=== PATIENT | female | born 1955 | race Caucasian/White ===

== ENCOUNTER 2019-07-11 09:45 | Emergency (ER) | payer BC ==
--- OUTSIDE RECORDS SUMMARY | 2019-07-11 09:51 | XMS REPORT | Continuity of Care Document ---
:1955 Author Organization [facility] Care Team Providers Name Role Phone BALTAZAR RANDALL Admitting Physician BALTAZAR RANDALL Attending Physician Allergies and Intolerances Code Code System Allergy Type Reaction Severity Start End Date Status Substance Date RXNorm Sulfa Drug hives Moderate Active (Sulfonamide allergy 5 Antibiotics) (disorder) 505844 RXNorm Demerol Drug vomiting Unknown Active allergy 5 (disorder) Medications RxNorm Medication Dose Route Instructions Start Date End Date Status 065042 Metformin 500 mg oral orally every day Active hydrochloride 500 MG Oral Tablet Medications At Time Of Discharge RxNorm Medication Dose Route Instructions Start Date End Date Status 635054 Metformin 500 mg oral orally every day Active hydrochloride 500 MG Oral Tablet Problems Code Code System Problem Name Start Date End Date Status 84061179 SNOMED-CT Diabetes mellitus U Active Procedures No data in the system Results Laboratory Results Order: A1C Specimen Source: Body Site: Legend: (G,H) = High, (GG,HH,CH,#H) = Above High Threshold, (#,L) = Low, (##,CL, #L,LL) = Below Low Threshold, (C,CC,CA,#A,A) = Abnormal LOINC Test Result Flag Range Units Date 1A1C 8.9 H 4.8-6.0 % 06/18/2019 13:17 Performing Lab Footnotes:[facility] - [id number] - [address] [place] [id number] LIBERTY JEFFERSON Order: BASIC METABOLIC PANEL Specimen Source: Body Site: Legend: (G,H) = High, (GG,HH,CH,#H) = Above High Threshold, (#,L) = Low, (##,CL,#L,LL) = Below Low Threshold, (C,CC,CA,#A,A) = Abnormal LOINC Test Result Flag Range Units Date 1SODIUM 138 136-145 mmol/L 06/18/2019 13:17 1POTASSIUM 4.3 3.5-5.2 mmol/L 06/18/2019 13:17 1CHLORIDE 99 L 100-108 mmol/L 06/18/2019 13:17 1CO2 27 21-32 mmol/L 06/18/2019 13:17 1GLUCOSE 172 H 70-100 mg/dL 06/18/2019 13:17 1BUN 11 7-21 mg/dL 06/18/2019 13:17 1CREATININE 0.8 0.6-1.3 mg/dL 06/18/2019 13:17 Interpretive Caity: 1Normal Kidney Function or Mild Disease - GFR >OR= 60 Chronic Kidney Disease - GFR 15-59 Renal Failure - GFR < 15 GFR not calculated on patients under 18 years of age. Calculated (estimated) GFR is based on the MDRD Study equation, which assumes a steady state for creatinine. Estimated GFR may not be appropriate for medication dosing. 1CALCIUM 9.5 8.5-10.8 mg/dL 06/18/2019 13:17 1GFR >60 06/18/2019 13:17 Performing Lab Footnotes:[facility] - [id number] - [address] [place] [address] LIBERTY BASSETTCIOMD1 Social History Code Code System Social History Description Dates Observed Observation 830247658 SNOMED CT Current Smoking Unknown if ever Status smoked UNK AdministrativeGender Sex Assigned At Unknown Vital Signs No data in the system Goals Section No data in the system Health Concerns No data in the systemEncounter Diagnosis Date Code Code System Diagnosis Status E11.9 ICD10 TYPE 2 DM WITHOUT COMPLICATIONS Active Advance Directives No Data in the System Encounters Encounter Diagnosis Location Date TYPE 2 DM WITHOUT COMPLICATIONS [facility] 06/18/2019 Family History Family history not obtained Functional Status No data in the system Immunizations No data in the system Medical Equipment No data in the system Mental Status No data in the system Assessment and Plan Assessments No data in the systemPlan Of Treatment No data in the systemPending Tests No data in the system Hospital Discharge Instructions No data in the system Reason for Visit No data in the system
--- OUTSIDE RECORDS SUMMARY | 2019-07-11 09:51 | XMS REPORT | Continuity of Care Document ---
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 [phone] Problems Active Problems Provider Date Type 2 diabetes mellitus Porsha Graham MD Onset: 05/09/2014 Essential hypertension Porsha Graham MD Onset: 06/19/2019 Social History Type Date Description Comments Sex Unknown Cigarette Use Denies Cigarette Use ETOH Use Denies alcohol use Tobacco Use Start: Unknown Patient has never smoked Allergies, Adverse Reactions, Alerts Active Allergies Reaction Severity Comments Date sulfa hives 12/11/2013 Demerol hives 12/11/2013 Medications Active Medications SIG Qnty Indications Ordering Date Provider Vitamin D3 1 by mouth every 90caps Porsha Graham, 06/19/2019 25mcg (1000 day Ut) Capsules Januvia 1 by mouth every 90tabs E11.9 Porsha Graham, 06/19/2019 50mg Tablets day Metformin HCL 1.5 tabs po qday 60tabs E11.9 Porsha Graham, 12/20/2018 1000mg MD Tablets Atorvastatin Calcium 1 by mouth every 90tabs Porsha Graham, 12/19/2018 day 10mg Tablets Accu-Chek Multiclix use as directed 102units Porsha Graham, 01/19/2016 Lancets one to two times Misc every day Accu-Chek Nettie Plus check blood 100units Porsha Graham, 12/15/2014 sugars once per MD Strips day prn Blood Glucose Use as directed 1units Tj Najera DO 08/07/2014 Monitoring System W/Device Kit Medications Administered in Office Medication SIG Qnty Indications Ordering Provider Date Injection Methylprednisolone Debbie Redding, 12/11/2013 Acetate 40 MG M.D. Injection Immunizations CPT Code Status Date Vaccine Lot # [id number] Given 06/19/2019 Pneumococcal Conjugate Vaccine 13 Valent Im [id number] (Prevnar 13) 87171 Given 05/30/2019 Influenza Virus Vaccine, Quad, Preservative Free 6mo & up [address] Given 05/04/2018 Influenza Virus Vaccine, Quad, Preservative Free [id number] 6mo & up 94168 Given 03/01/2017 Influenza Virus Vaccine, Quad, Preservative Free [id number] 6mo & up [address] Given 03/28/2016 Influenza Virus Vaccine, Quad, Preservative Free [id number] 6mo & up Vital Signs Date Vital Result Comment 06/19/2019 1:53pm Weight 150.00 lb Weight 68.040 kg BMI (Body Mass Index) 27.4 kg/m2 BP Systolic 128 mmHg BP Diastolic 78 mmHg Heart Rate 88 /min Body Temperature 98.6 F Respiratory Rate 20 /min Height 62 inches 5'2" Height in cm's 157.5 cm O2 % BldC Oximetry 98 % 12/19/2018 2:34pm Weight 149.50 lb Weight 67.813 kg BMI (Body Mass Index) 27.3 kg/m2 Height 62 inches 5'2" Height in cm's 157.5 cm Results Test Acquired Date Facility Test Result H/L Range Note Basic Metabolic 06/18/2019 [facility] Sodium 138 mmol/L 136- 145 Panel [phone] Potassium 4.3 mmol/L 3.5-5.2 Chloride 99 mmol/L Low 100-108 Co2 27 mmol/L 21-32 Glucose 172 mg/dL High 70-100 BUN 11 mg/dL 7-21 Creatinine 0.8 mg/dL 0.6-1.3 1 Calcium 9.5 mg/dL 8.5-10.8 GFR >60 Laboratory test 06/18/2019 [facility] A1c 8.9 % High 4.8-6.0 finding [phone] Basic Metabolic Panel 12/19/2018 [facility] Sodium 136 mmol/L 136-145 [phone] Potassium 4.3 mmol/L 3.5-5.2 Chloride 101 mmol/L 100-108 Co2 28 mmol/L 21-32 Glucose 192 mg/dL High 70-100 BUN 15 mg/dL 7-21 Creatinine 0.8 mg/dL 0.6-1.3 2 Calcium 9.5 mg/dL 8.5-10.8 GFR >60 Laboratory test finding 12/19/2018 [facility] A1c 8.2 % High 4.8 -6.0 [phone] 1 Normal Kidney Function or Mild Disease - GFR >OR= 60 Chronic Kidney Disease - GFR 15-59 Renal Failure - GFR < 15 GFR not calculated on patients under 18 years of age. 2 Normal Kidney Function or Mild Disease - GFR >OR= 60 Chronic Kidney Disease - GFR 15-59 Renal Failure - GFR < 15 GFR not calculated on patients under 18 years of age. Procedures Date Code Description Status 08/20/2018 [id number] Mammogram Completed 02/19/2018 88373353 Colonoscopy Completed 04/21/2011 794055405 Bone Mineral Density Test Completed Medical Devices Description No Information Available Encounters Type Date Location Provider Dx Diagnosis Office Visit 06/19/2019 [facility] Porsha Graham, E11.9 Type 2 diabetes 1:45p Care mellitus without complications I10 Essential (primary) hypertension Z23 Encounter for immunization Office Visit 12/19/2018 2:30p [facility] Porsha E11.9 Type 2 diabetes Care MD Santos mellitus without complications Assessments Date Code Description Provider 06/19/2019 E11.9 Type 2 diabetes mellitus without complications Porsha Graham MD 06/19/2019 I10 Essential (primary) hypertension Porsha Graham MD 06/19/2019 Z23 Encounter for immunization Porsha Graham MD 06/18/2019 E11.9 Type 2 diabetes mellitus without complications Apc and Endo Draw 12/19/2018 E11.9 Type 2 diabetes mellitus without complications Apc and Endo Draw 12/19/2018 E11.9 Type 2 diabetes mellitus without complications Porsha Graham MD Plan of Treatment 06/19/2019 - Porsha Graham MDE11.9 Type 2 diabetes mellitus without [id number] Essential (primary) urcyivctqfpmK20 Encounter for immunizationNew Medication:Januvia 50 mgNew Labs:Comprehensive Panel, Ordered: 06/19/19Lipid Panel, Ordered: 06/19/19A1c, Ordered: 06/19/19Follow up:RTO [address] Miguel. Functional Status Description No Information Available Mental Status Description No Information Available Referrals Description No Information Available
--- NOTE | 2019-07-11 11:39 | UC ---
Head Injury HPI - HPI Summary HPI Summary: 64-year-old woman comes in with a chief complaint of a head injury after a fall yesterday. Patient slipped on some ice and fell backwards striking the back of her head. She reports having lost consciousness for several seconds. Headache and that time was about a 10 out of 10. Headache is less now. Patient's headache is primarily in the front in the right temporal area today. Denies any photophobia or change in vision or speech. Does feel some generalized weakness but, no complaint of any focal weakness or numbness. Patient takes a baby aspirin not on any other blood thinners. Also has neck pain and mid thoracic back pain since the fall. - History Of Current Complaint Chief Complaint: UCHeadInjury Stated Complaint: FELL ON ICE , HIT HEAD Time Seen by Provider: 07/11/19 11:23 Pain Intensity: 7 - Allergies/Home Medications Allergies/Adverse Reactions: Allergies Allergy/AdvReac Type Severity Reaction Status Date / Time meperidine [From Demerol] Allergy Vomiting Verified 07/11/19 10:03 morphine Allergy Vomiting Verified 07/11/19 10:03 Sulfa (Sulfonamide Allergy Hives Verified 07/11/19 10:03 Antibiotics) Home Medications: Home Medications Metformin ER 1,500 mg PO DAILY 07/15/12 [History Confirmed 07/15/12] Atorvastatin* [Lipitor 10 MG*] 1 tab PO DAILY 07/11/19 [History Confirmed ] PMH/Surg Hx/FS Hx/Imm Hx Previously Healthy: Yes Endocrine History: Diabetes, Dyslipidemia - Surgical History Surgical History: Yes Surgery Procedure, Year, and Place: carpal tunnel - Family History Known Family History: Positive: Non-Contributory - Social History Alcohol Use: None Substance Use Type: None Smoking Status (MU): Former Smoker Review of Systems All Other Systems Reviewed And Are Negative: Yes Constitutional: Positive: Other - SEE HPI Skin: Positive: Negative Eyes: Positive: Negative ENT: Positive: Negative Respiratory: Positive: Negative Cardiovascular: Positive: Other - SEE HPI Gastrointestinal: Positive: Negative Motor: Positive: Other - SEE HPI Neurovascular: Positive: Negative Musculoskeletal: Positive: Other: - SEE HPI Neurological/Mental Status: Positive: Headache, Other - SEE HPI Psychological: Positive: Negative Is Patient Immunocompromised?: No Physical Exam Triage Information Reviewed: Yes Appearance: Well-Appearing, Well-Nourished, Pain Distress - MILD Vital Signs: Initial Vital Signs Temp 98 F 07/11/19 09:59 Pulse 86 07/11/19 09:59 Resp 15 07/11/19 09:59 BP 136/69 07/11/19 09:59 Pulse Ox 100 07/11/19 09:59 Vital Signs Reviewed: Yes Eye Exam: Normal Eyes: Positive: Conjunctiva Clear, Other: - PERRLA EOMI. No photophobia ENT: Positive: Pharynx normal, TMs normal - No hemotympanum. Negative: Nasal drainage Neck: Positive: Other: - Tender to palpation in the posterior midline and lateral aspects of the neck. Respiratory: Positive: Lungs clear, Normal breath sounds, No respiratory distress, Other: - Tender to palpation midline mid thoracic back. Cardiovascular: Positive: RRR Musculoskeletal: Positive: Strength Intact, ROM Intact, Other: - Tender to palpation mid thoracic back. Neurological: Positive: Alert, Muscle Tone Normal, Other: - No focal neurologic deficit on examination. Psychological: Positive: Age Appropriate Behavior Skin Exam: Normal Head Injury Course/Dx - Course Course Of Treatment: Swine Extension Field Specialist: Brett Wiseman ([id number]) Temporary Help Agency Referral Clerk: HAKEEM (NUANCE) Report Date: 07/11/2019 12:13:00 Report Status: Final Start of Report Content Patient Name: CHARLIE ASHRAF Medical Record#: [id number] Ordering Physician: Gabriel Davis MD Acct.#: [id number] : Age: 64 Sex: F Location: [facility] Exam Date: 07/11/19 1132 ADM Status: REG ER Order Information: CT SPINE CERVICAL W/O Accession Number: [id number] CPT: 31137 INDICATION: Trauma. COMPARISON: There are no prior studies available for comparison. TECHNIQUE: Contiguous axial sections were obtained from the skull base through the T2 vertebra. Images were reconstructed in the sagittal and coronal planes. FINDINGS: There is straightening of the cervical lordotic curvature with 3 mm anterolisthesis of C4 on C5. There is no abnormal splaying of the spinous processes. The cranial vertebral junction and facets are anatomically aligned. The bones are osteopenic. The vertebral body heights are maintained. No fractures identified. There is acquired osseous fusion of the left C2-C3 facets. There is moderate intervertebral disc height loss at C5-C6 and C6-C7. The paraspinal and prevertebral soft tissues are grossly unremarkable. Varying degrees multiple spondylosis does not result in severe osseous encroachment spinal canal. There is moderate left neural foraminal stenosis at C3-C4. IMPRESSION: 1. No fracture. 2. Varying degrees of multiple spondylosis does not cause severe osseous encroachment spinal canal. There is moderate left neural foraminal stenosis at C3-C4. 3. 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 4. Osteopenia. < Electronically signed by Brett Wiseman MD in OV> 07/11/19 1210 Dictated By: Brett Wiseman MD Dictated Date/Time: 07/11/19 1203 Transcribed Date/Time: 1203 Copy to: CC:Porsha Graham MD; Gabriel Davis MD Imaging - [facility] - [facility] [address] [address] ph [phone]) ph [phone]) ph ([phone]) ===== End of Report Content Swine Extension Field Specialist: Ant Aguirre Daniel, ([id number]) Temporary Help Agency Referral Clerk: HAKEEM ( ALONSOANCE) Report Date: 07/11/2019 12:10:00 Report Status: Final ====== Start of Report Content Patient Name: CHARLIE ASHRAF Medical Record# : [id number] Ordering Physician: Gabriel Davis MD Acct.#: [id number] : 1955 Age: 64 Sex: F Location: [facility] Exam Date: 1132 ADM Status: REG ER Order Information: CT BRAIN WO Accession Number: [id number] CPT: 95115 HISTORY: PAIN S/P FALL 07/10/19,REPORTS LOC COMPARISONS: None relevant available at the time of dictation. TECHNIQUE: Multiple contiguous axial CT scans were obtained of the head without intravenous contrast. Coronal and sagittal multiplanar reformations are also submitted for review. FINDINGS: HEMORRHAGE/INFARCT: There is a small amount of subarachnoid hemorrhage for the described below. There is no parenchymal hemorrhage. There is no acute infarct. MASSES/SHIFT: There is no mass or shift. EXTRA-AXIAL SPACES : There is a small amount of subarachnoid hemorrhage along the left superior frontal gyrus medially. SULCI AND VENTRICLES: The sulci and ventricles are normal in size and position for the patient's stated age. CEREBRUM: There are no focal parenchymal abnormalities. BRAINSTEM: There are no focal parenchymal abnormalities. CEREBELLUM: There are no focal parenchymal abnormalities. VESSELS : The vessels are grossly normal. PARANASAL SINUSES: The paranasal sinuses are clear. ORBITS: The orbits are unremarkable. BONES AND SOFT TISSUE: No bone or soft tissue abnormalities are noted. OTHER: None IMPRESSION: SMALL AMOUNT OF LEFT FRONTAL SUBARACHNOID HEMORRHAGE PRELIMINARY FINDINGS WERE DISCUSSED WITH URGENT CARE AT APPROXIMATELY 12:06 PM ON JULY 11, 2019. <Electronically signed by Ant Aguirre MD in OV> 07/11/191205 Dictated By: Ant Aguirre MD Dictated Date /Time: 07/11/191200 Transcribed Date/Time: 07/11/191200 Copy to: CC:Porsha Graham MD; Gabriel Davis MD Imaging - [facility] Imaging - [facility] - [facility] [address] [place] [id number] [address] [address] ph [phone]) ph [phone]) ph ([phone]) End of Report Content Swine Extension Field Specialist: Ant Aguirre Daniel, ([id number]) Temporary Help Agency Referral Clerk: HAKEEM, ( NUANCE) Report Date: 07/11/2019 12:31:00 Report Status: Final ====== Start of Report Content Patient Name: CHARLIE ASHRAF Medical Record# : [id number] Ordering Physician: Gabriel Davis MD Acct.#: [id number] : 1955 Age: 64 Sex: F Location: [facility] Exam Date: 1132 ADM Status: REG ER Order Information: THORACIC SPINE 2 VWS Accession Number: [id number] CPT: 92778 HISTORY: pain s/p fall 07/10/19 COMPARISONS: None relevant available at the time of dictation. VIEWS: 2, Frontal and lateral views of the thoracic spine. FINDINGS: ALIGNMENT: The alignment is normal. VERTEBRAL BODIES: The vertebral bodies are preserved in height. There is mild anterolateral marginal osteophyte formation. JOINTS: Unremarkable. INTERVERTEBRAL DISCS: There is mild diffuse loss of intervertebral disc height. SOFT TISSUE: Unremarkable OTHER: The visualized lungs are clear. IMPRESSION: MILD DEGENERATIVE DISC DISEASE <Electronically signed by nAt Aguirre MD in OV> 07/11/19 1226 Dictated By: Ant Aguirre MD Dictated Date/Time: 07/11/19 1226 Transcribed Date/Time: 07/11/19 1226 Copy to: CC:Porsha Graham MD; Gabriel Davis MD Imaging - [facility] - [facility] - [facility] [address] [place] [address] ph ([phone]) ph [phone]) ph ([phone]) End of Report Content I discussed the CT results with the patient. IV was placed by nursing and patient transferred by ambulance to the emergency department. Patient neurovascular intact during her stay here in clinic. I discussed the case with the emergency physician Dr. Singh. - Differential Dx/Diagnosis Provider Diagnosis: Brain bleed, Neck pain, Thoracic back pain Discharge ED - Sign-Out/Discharge Documenting (check all that apply): Patient Departure All imaging exams completed and their final reports reviewed: Yes - Discharge Plan Condition: Stable Disposition: TRANS HIGHER LVL OF CARE FAC Referrals: Santos CHAVEZ,Porsha Esquivel [Primary Care Provider] - - Billing Disposition and Condition Condition: STABLE Disposition: Trans Higher Lvl of Care Fac
[2019-07-11 12:26] VITALS: BP 123/83
== END 2019-07-11 12:35 | disposition short-term general hospital (02) ==
LOC: UCEAST 09:45
DX: S06.2X0A Diffuse traumatic brain injury without loss of consciousness, initial encounter (principal); M54.6 Pain in thoracic spine; M51.34 Other intervertebral disc degeneration, thoracic region; E11.9 Type 2 diabetes mellitus without complications; E78.5 Hyperlipidemia, unspecified; Z88.5 Allergy status to narcotic agent; Z88.2 Allergy status to sulfonamides; Z79.84 Long term (current) use of oral hypoglycemic drugs; Z87.891 Personal history of nicotine dependence; Z79.899 Other long term (current) drug therapy; W00.0XXA Fall on same level due to ice and snow, initial encounter; Y92.9 Unspecified place or not applicable
CPT/HCPCS: 70450; 72070; 72125; 99213; G0463

== ENCOUNTER 2019-07-11 12:56 | Observation (INO) | payer BC ==
[2019-07-11] MEDS ORDERED: Acetaminophen TAB* 325 MG PO ONE (13:21)
[2019-07-11] MEDS ORDERED: levETIRAcetam TAB* 500 MG PO ONE (13:29)
[2019-07-11 13:43] LABS: Hematocrit 38 % (35-47); Hemoglobin 13.2 g/dL (12.0-16.0); Mean Corpuscular HGB Conc 35 g/dL (31-36); Mean Corpuscular Hemoglobin 30 pg (27-31); Mean Corpuscular Volume 87 fL (80-97); Mean Platelet Volume 11.6 fL (7.4-10.4); Platelet Count 95 10^3/uL (150-450); Red Blood Count 4.39 10^6 /uL (3.70-4.87); Red Cell Distribution Width 14 % (10-15); White Blood Count 5.1 10^3/uL (3.5-10.8)
[2019-07-11 13:52] LABS: INR 1.16 (0.82-1.09)
[2019-07-11 14:13] LABS: ALT 30 U/L (7-52); AST 27 U/L (13-39); Albumin 4.5 g/dL (3.2-5.2); Albumin/Globulin Ratio 1.4 (1-3); Alkaline Phosphatase 91 U/L (34-104); Anion Gap 8 mmol/L (2-11); BUN/Creatinine Ratio 17.1 (8-20); Blood Urea Nitrogen 12 mg/dL (6-24); CO2 Carbon Dioxide 27 mmol/L (22-32); Calcium 9.6 mg/dL (8.6-10.3); Chloride 103 mmol/L (101-111); EGFR African American 101.9 (>60); EGFR Non-African American 84.2 (>60); Globulin 3.2 g/dL (2-4); Glucose 105 mg/dL (70-100); Potassium 3.8 mmol/L (3.5-5.0); Sodium 138 mmol/L (135-145); Total Protein 7.7 g/dL (6.4-8.9)
--- NOTE | 2019-07-11 14:39 | ED ---
Head Injury - HPI Summary HPI Summary: This patient is a 64-year-old female who presents to the ED from urgent care with head injury. Patient states she fell on the ice yesterday, hit the back of her head and has been having headache ever since. Denies any dizziness, confusion, memory loss, visual changes or sensitivity to light. She states her headache is diffuse, throbbing and rated a 4/10. She is not taken any medication for her headache. She does endorse some posterior cervical spine tenderness without pain to the thoracic or lumbar region. Patient remains ambulatory. No urinary symptoms. Patient had a CT brain and cervical spine and thoracic spine obtained at urgent care which shows a small left frontal subarachnoid hemorrhage. No findings on CT or thoracic x-ray. Patient was sent here for further evaluation. Patient takes daily aspirin. - History Of Current Complaint Chief Complaint: EDHeadInjury Stated Complaint: FALL PER EMS Time Seen by Provider: 07/11/19 13:00 Hx Obtained From: Patient Mechanism Of Injury: Blunt Trauma Onset/Duration: Started Hours Ago Onset of Pain: Hours Severity Currently: Moderate Severity Initially: Moderate Pain Intensity: 6 Pain Scale Used: 0-10 Numeric Aggravating Factor(s): Movement Alleviating Factor(s): Rest Associated Signs And Symptoms: LOC (Time In Secs./Mins/Hrs) - seconds - Risk Factors SDH Risk Factor: Recent Trauma - Allergies/Home Medications Allergies/Adverse Reactions: Allergies Allergy/AdvReac Type Severity Reaction Status Date / Time meperidine [From Demerol] Allergy Vomiting Verified 07/11/19 10:03 morphine Allergy Vomiting Verified 07/11/19 10:03 Sulfa (Sulfonamide Allergy Hives Verified 07/11/19 10:03 Antibiotics) Home Medications: Home Medications Metformin ER 500 mg PO TID 07/15/12 [History Confirmed 07/11/19] Aspirin EC TAB* [Ecotrin EC Low Dose 81 MG*] 81 mg PO DAILY 07/11/19 [History Confirmed 07/11/19] Atorvastatin* [Lipitor 10 MG*] 10 mg PO DAILY 07/11/19 [History Confirmed ] Cholecalciferol TAB* [Vitamin D TAB*] 1,000 unit PO DAILY 07/11/19 [History Confirmed 07/11/19] Sitagliptin (NF) [Januvia (NF)] 50 mg PO DAILY 07/11/19 [History Confirmed 07/11] PMH/Surg Hx/FS Hx/Imm Hx Endocrine/Hematology History: Reports: Hx Diabetes - type 2 Denies: Hx Anticoagulant Therapy Respiratory History: Denies: Hx Asthma - Cancer History Hx Chemotherapy: No Hx Radiation Therapy: No - Surgical History Surgery Procedure, Year, and Place: carpal tunnel Infectious Disease History: No Infectious Disease History: Denies: Traveled Outside the [place] in Last 30 Days - Family History Known Family History: Positive: Non-Contributory - Social History Occupation: Employed Full-time Lives: With Family Alcohol Use: None Hx Substance Use: No Substance Use Type: Reports: None Smoking Status (MU): Former Smoker Review of Systems Negative: Fever, Chills, Fatigue, Skin Diaphoresis Negative: Palpitations, Chest Pain Negative: Shortness Of Breath, Cough Positive: Nausea. Negative: Abdominal Pain, Vomiting, Diarrhea Negative: Myalgia Negative: Rash, Bruising Positive: Headache. Negative: Weakness, Paresthesia, Numbness Psychological: Normal All Other Systems Reviewed And Are Negative: Yes Physical Exam Triage Information Reviewed: Yes Vital Signs On Initial Exam: Initial Vitals Temp Pulse Resp BP Pulse Ox 98.1 F 83 16 148/97 98 07/11/19 12:58 07/11/19 12:58 07/11/19 12:58 07/11/19 12:58 07/11/19 12:58 Vital Signs Reviewed: Yes Appearance: Positive: Well-Appearing, Well-Nourished Skin: Positive: Warm, Skin Color Reflects Adequate Perfusion Head/Face: Positive: Normal Head/Face Inspection Eyes: Positive: EOMI, HOLA, Conjunctiva Clear Neck: Positive: Supple, No Lymphadenopathy Respiratory/Lung Sounds: Positive: Clear to Auscultation, Breath Sounds Present Cardiovascular: Positive: RRR, Pulses are Symmetrical in both Upper and Lower Extremities Musculoskeletal: Positive: Normal, Strength/ROM Intact Neurological: Positive: Speech Normal Psychiatric: Positive: Normal, Affect/Mood Appropriate AVPU Assessment: Alert Procedures - Sedation Patient Received Moderate/Deep Sedation with Procedure: No Diagnostics - Vital Signs Vital Signs Temp Pulse Resp BP Pulse Ox 07/11/19 14:00 81 132/91 98 07/11/19 13:01 85 98 07/11/19 12:59 80 98 07/11/19 12:58 98.1 F 83 16 148/97 98 - Laboratory Lab Results: Lab Results 07/11/19 07/11/19 07/11/19 Range/Units 13:32 13:32 13:32 WBC 5.1 (3.5-10.8) 10^3/uL RBC 4.39 (3.70-4.87) 10^6 /uL Hgb 13.2 (12.0-16.0) g/dL Hct 38 (35-47) % MCV 87 (80-97) fL MCH 30 (27-31) pg MCHC 35 (31-36) g/dL RDW 14 (10-15) % Plt Count 95 L (150-450) 10^3/uL MPV 11.6 H (7.4-10.4) fL INR (Anticoag Therapy) 1.16 H (0.82-1.09) Sodium 138 (135-145) mmol/L Potassium 3.8 (3.5-5.0) mmol/L Chloride 103 (101-111) mmol/L Carbon Dioxide 27 (22-32) mmol/L Anion Gap 8 (2-11) mmol/L BUN 12 (6-24) mg/dL Creatinine 0.70 (0.51-0.95) mg/dL Est GFR ( Amer) 101.9 (>60) Est GFR (Non-Af Amer) 84.2 (>60) BUN/Creatinine Ratio 17.1 (8-20) Glucose 105 H (70-100) mg/dL Calcium 9.6 (8.6-10.3) mg/dL Total Bilirubin 0.70 (0.2-1.0) mg/dL AST 27 (13-39) U/L ALT 30 (7-52) U/L Alkaline Phosphatase 91 (34-104) U/L Total Protein 7.7 (6.4-8.9) g/dL Albumin 4.5 (3.2-5.2) g/dL Globulin 3.2 (2-4) g/dL Albumin/Globulin Ratio 1.4 (1-3) Result Diagrams: 07/11/19 13:32 07/11/19 13:32 Lab Statement: Any lab studies that have been ordered have been reviewed, and results considered in the medical decision making process. Head Injury Course/Dx Course Of Treatment: This patient is evaluated for head injury. Patient is tearful on exam, states she has a mild headache rated a 5/10. This is throbbing and diffusely throughout. No cephalhematoma appreciated. No visual changes. Patient states she is very anxious. Left frontal lobe subarachnoid hemorrhage shown on CT. Discussed this case with Dr. Lara who recommends repeat CT in 12 hours with observation admit. Keppra 1000 mg seizure prophylaxis, flexion and extension of the cervical spine x-rays as well as lumbar AP/lateral spine x-ray. Patient was given sips of water with Tylenol, otherwise made NPO. Discussed with Dr. Gilbert who will admit for further evaluation. - Diagnoses Differential Diagnosis/HQI/PQRI: Concussion With LOC, Concussion Without LOC, Contusion, Hematoma Provider Diagnoses: SAH (subarachnoid hemorrhage) - Physician Notifications Discussed Care Of Patient With: Tracy Lara - Critical Care Time Critical Care Time: 30-74 min - Upon my evaluation, this patient had a high probability of imminent or life-threatening deterioration due to SAH which required my direct attention, intervention, and personal management. I have personally provided 35 minutes of critical care time exclusive of time spent on separately billable procedures. Time includes review of laboratory data, radiology results, discussion with consultants, and monitoring for potential decompensation. Interventions were performed as documented above. Discharge ED - Sign-Out/Discharge Documenting (check all that apply): Patient Departure - Discharge Plan Condition: Fair Disposition: ADMITTED TO [facility] Referrals: Santos CHAVEZ,Porsha Esquivel [Primary Care Provider] - - Billing Disposition and Condition Condition: FAIR Disposition: Admitted to [facility] - Attestation Statements Provider Attestation: I have seen the patient with the PHAM and agree with the plan and documentation below except as noted: recent this is a 64-year-old female noted to have a subarachnoid hemorrhage status post fall. CT C-spine negative, thoracic spine negative. Lumbar films ordered. Discussed with Dr. Rangel, will give keppra, admit for observation. Jolene Xie MD
[2019-07-11] MEDS ORDERED: Acetaminophen TAB* 325 MG PO PRN (15:28)
--- NOTE | 2019-07-11 15:44 | CONS ---
CONSULTATION NOTE: DATE OF CONSULT: 07/11/19 HISTORY OF PRESENT ILLNESS: The patient is a very pleasant 64-year-old female who was brought to the emergency room from urgent care as a transfer. The patient was reported to have sustained a fall on the ice yesterday after slipping on the ice and falling backwards. The patient at that time positive loss of consciousness, but she remembers she has no loss of memory. The patient had headache at the time of fall and since then the headache has persisted. The patient denies any headache prior to her falling. The patient denies any neck pain, any back pain. She denies any weakness, numbness, or tingling of her extremities. She denies any seizure. Denies any nausea or vomiting. She does have some mild dizziness. She was able to tolerate p.o. well. She denies any urinary or GI incontinence. Her perianal sensation is intact. 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 She is , lives with her and her 2 children. The patient is accompanied by her sister who is a nurse and was seen in the emergency room. Requested to see the patient by emergency room team because of CT scan findings consistent with possible left frontal small traumatic subarachnoid hemorrhage. PAST MEDICAL HISTORY: The patient has history of diabetes, dyslipidemia. PAST SURGICAL HISTORY: Carpal tunnel. HOME MEDICATIONS: 1. Metformin. 2. Atorvastatin. ALLERGIES: The patient is allergic to MEPERIDINE, MORPHINE, and SULFA. FAMILY HISTORY: Noncontributory. SOCIAL HISTORY: Tobacco, negative. Alcohol, negative. Recreational drug use, negative. PHYSICAL EXAM: The patient is not in acute distress. She is awake, alert, and oriented x3. Her pupils are equal and reactive. Cranial nerves II through XII are grossly intact. Motor 5/5 in all extremities. No pronator drift. Sensory grossly intact to light touch. Deep tendon reflexes +1 bilaterally. No clonus. No Babinski. Olive's negative. Straight leg raising test negative in the supine position. The patient has no tenderness to palpation of the thoracic or lumbar spine. She has free range of motion in the cervical spine. DIAGNOSTIC STUDIES: The patient had a CT scan of the brain revealing possible small left frontal subarachnoid hemorrhage versus cortical contusion. No midline shift. No associated edema. No significant mass effect. The patient had a CT scan of the cervical spine that reveals multilevel degenerative disk disease without evidence of fracture. The patient had a thoracic spine x-ray that did not reveal any evidence of fractures or subluxation. ASSESSMENT: The patient is a very pleasant 64-year-old female with reported fall yesterday, with CT scan findings consistent with a small left frontal subarachnoid hemorrhage. PLAN: The patient at this point is doing quite well. We discussed imaging findings. We will recommend observation for 24 hours and repeat the CT scan in a.m. We will also recommend seizure prophylaxis for 7 days and check for coagulopathy. We will recommend also flexion and extension x-rays of the cervical spine and plain x-rays with AP and lateral of the lumbar spine. Plan was explained in details to the patient and her sister. The hospitalist team has been contacted by the emergency room and had kindly agreed to admit the patient. Thank you very much for allowing us to participate in the care of this patient. Please do not hesitate to contact our office in case if you have any further questions or concerns regarding the care of this patient. [id number]/CPS #: [id number] [place]
--- NOTE | 2019-07-11 15:54 | HP ---
History of Present Illness - History of Present Illness Reason for Visit: Head Injury-Yesterday History of Present Illness: This is a 64 F with PMH significant for Diabetes presented after fall. According to patient, patient was tubing yesterday when she fell down and hit back of her head. She states that she lost her conscious for about 5 seconds. She was with her kids and grand kids when this happened. There was no witnessed seizure, incontinence or altered mental status. Since then she is having headache which is on right frontal area;6/10; with no radiation and no aggravating and alleviating factor. She did not tell anyone or did not seek medical care yesterday as she did not want to bother her kids and her . She denies trauma to other part of body, visual changes and instability of gait. Her headache was increasing which made her to go to urgent care. Brain CT was done in urgent care and showed left sided small frontal sub-arachnoid hemorrhage. So, she was sent to [facility] for further evaluation. Hospital Course In ED, her vitals were stable. Blood work showed Platelet 95 and Glucose of 105 and INR 1.16. [address]erv[address] spine was negative for fractures; showed some spondylosis and moderate foraminal stenosis at C6. Cervical and lumbar Xray is negative for fracture; shows degenerative disease. Dr. House was contacted who recommended for observation with repeat CT tomorrow. - Past Medical History Past Medical History: 1. Diabetes 2. Carpal Tunnel Syndrome - Past Surgical History Past Surgical History: 1. Bilateral Carpal Tunnel Surgery 2. - Past Family History Past Family History: Father had Diabetes and Mother had some lung problems. She has 2 children and both of them are healthy. 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 She denies tobacco use, alcohol use and other recreational drug use. Her adjuster electrical contacts is her -Chuck([phone]). She is full code. Medications: Home Medications Medication Instructions Recorded Confirmed Type Metformin ER 1500 mg PO DAILY 07/15/12 07/11/19 History Aspirin EC TAB* [Ecotrin EC Low 81 mg PO DAILY 07/11/19 07/11/19 History Dose 81 MG*] Atorvastatin* [Lipitor 10 MG*] 10 mg PO DAILY 07/11/19 07/11/19 History Cholecalciferol TAB* [Vitamin D 1,000 unit PO DAILY 07/11/19 07/11/19 History TAB*] Sitagliptin (NF) [Januvia (NF)] 50 mg PO DAILY 07/11/19 07/11/19 History Allergies/Adverse Reactions: Allergies Allergy/AdvReac Type Severity Reaction Status Date / Time meperidine [From Demerol] Allergy Vomiting Verified 07/11/19 10:03 morphine Allergy Vomiting Verified 07/11/19 10:03 Sulfa (Sulfonamide Allergy Hives Verified 07/11/19 10:03 Antibiotics) Review of Systems - Review of Systems Constitutional: Negative: Fever, Chills, Sweats, Weakness, Malaise, Other Eyes: Negative: Pain, Vision Change, Conjunctivae Inflammation, Eyelid Inflammation, Redness, Other ENT: Negative: Ear Pain, Ear Discharge, Nose Pain, Nose Discharge, Nose Congestion, Mouth Pain, Mouth Swelling, Throat Pain, Throat Swelling, Other Respiratory: Negative: Cough, Dry, Shortness of Breath, Hemoptysis, SOB with Excertion, Pleuritic Pain, Sputum, Wheezing Cardiovascular: Negative: Chest Pain, Palpitations, Orthopnea, Paroxysmal Noc. Dyspnea, Edema, Light Headedness, Other Gastrointestinal: Positive: Nausea. Negative: Vomiting, Abdominal Pain, Diarrhea, Constipation, Melena, Hematochezia, Other Genitourinary: Negative: Dysuria, Frequency, Incontinence, Hematuria, Retention , Other Musculoskeletal: Positive: Neck Pain, Back Pain. Negative: Shoulder Pain, Arm Pain, Hand Pain, Leg Pain, Foot Pain, Other Skin: Negative: Rash, Lesions, Filemon, Bruising, Other Neurological/Mental Status: Positive: Other - Headache. Negative: Weakness, Numbness, Incoordination, Change in Speech, Confusion, Seizures Exam Vital Signs: Vital Signs (72 hours) 07/11/19 07/11/19 07/11/19 12:58 12:59 13:01 Temperature 98.1 F Pulse Rate 83 80 85 Respiratory 16 Rate Blood Pressure 148/97 (mmHg) O2 Sat by Pulse 98 98 98 Oximetry 07/11/19 07/11/19 07/11/19 14:00 14:29 15:00 Temperature Pulse Rate 81 85 77 Respiratory Rate Blood Pressure 132/91 131/101 (mmHg) O2 Sat by Pulse 98 98 98 Oximetry Exam: General - NAD, sitting up in bed, Eyes - PERRLA, EOM intact HEENT- no abnormality Lymph Nodes - No lymphadenopathy Cardiovascular - RRR no m/r/g, no JVD, no carotid bruits Lungs - Clear to auscltation, no use of acessory muscles, no crackles or wheezes. Skin - No rashes, skin warm and dry, no erythematous areas Abdomen - Normal bowel sounds, abdomen soft and nontender Extremities - No edema, cyanosis or clubbing Musculo Skeletal - 5/5 strength, normal range of motion, no swollen or erythematous joints. Neurological Alert and oriented x 3, CN 2-12 grossly intact. Result Diagrams: 07/11/19 13:32 07/11/19 13:32 Additional Lab and Data: Lab Results 07/11/19 07/11/19 07/11/19 Range/Units 13:32 13:32 13:32 WBC 5.1 (3.5-10.8) 10^3/uL RBC 4.39 (3.70-4.87) 10^6 /uL Hgb 13.2 (12.0-16.0) g/dL Hct 38 (35-47) % MCV 87 (80-97) fL MCH 30 (27-31) pg MCHC 35 (31-36) g/dL RDW 14 (10-15) % Plt Count 95 L (150-450) 10^3/uL MPV 11.6 H (7.4-10.4) fL INR (Anticoag Therapy) 1.16 H (0.82-1.09) Sodium 138 (135-145) mmol/L Potassium 3.8 (3.5-5.0) mmol/L Chloride 103 (101-111) mmol/L Carbon Dioxide 27 (22-32) mmol/L Anion Gap 8 (2-11) mmol/L BUN 12 (6-24) mg/dL Creatinine 0.70 (0.51-0.95) mg/dL Est GFR ( Amer) 101.9 (>60) Est GFR (Non-Af Amer) 84.2 (>60) BUN/Creatinine Ratio 17.1 (8-20) Glucose 105 H (70-100) mg/dL Calcium 9.6 (8.6-10.3) mg/dL Total Bilirubin 0.70 (0.2-1.0) mg/dL AST 27 (13-39) U/L ALT 30 (7-52) U/L Alkaline Phosphatase 91 (34-104) U/L Total Protein 7.7 (6.4-8.9) g/dL Albumin 4.5 (3.2-5.2) g/dL Globulin 3.2 (2-4) g/dL Albumin/Globulin Ratio 1.4 (1-3) Assessment/Plan - Assessment/Plan Assessment: 64 F with PMH of Diabetes presented with headache after a head injury while tubing. Found to have left sub-arachnoid hemorrhage with no neurological deficit. Admitted under observation. Plan: 1. Sub-Arachnoid Hemorrhage: Status post trauma. Left sided SAH. No any neurological deficits noted. Dr. House was contacted who recommended admission under observation with repeat CT BRain tomorrow. We will also give her tylenol for pain. Avoid NSAIDS. We will do neuro checks every 4 hour and watch for neurological deficit. We will start Keppra for seizure prophylaxis for 7 days. 2. Diabetes: Continue Metformin and Sitagliptin. Continue statin. 3.Thrombocytopenia: Patient platelet is 95. In 2014 her platelet was 107 so it is chronic thrombovytopenia. Her liver enzymes are normal. we will check folate , B12 and follow it. May require further work-up as an outpatient. 4. DVT prophylaxis: SCD. 5. Diet: Clear liquid 6. Full code Attestation Documenting Resident: Neal Stone Supervising Physician: Sophia Boyce Attestation: This service has been performed in part by a resident under the direction of a teaching physician.I, Sophia Boyce, performed the service, or was physically present during the critical, or torre portions of the service, furnished by the resident. I participated in the management of the patient.
[2019-07-11 17:54] LABS: Folate > 20.00 ng/mL (>3.99)
[2019-07-11] MEDS: levETIRAcetam TAB* 500 MG PO SCH (22:41)
[2019-07-12 06:30] LABS: Hematocrit 36 % (35-47); Hemoglobin 12.2 g/dL (12.0-16.0); Mean Corpuscular HGB Conc 34 g/dL (31-36); Mean Corpuscular Hemoglobin 29 pg (27-31); Mean Corpuscular Volume 87 fL (80-97); Mean Platelet Volume 11.5 fL (7.4-10.4); Platelet Count 91 10^3/uL (150-450); Red Blood Count 4.19 10^6 /uL (3.70-4.87); Red Cell Distribution Width 14 % (10-15); White Blood Count 4.2 10^3/uL (3.5-10.8)
--- NOTE | 2019-07-12 07:21 | PN ---
Subjective Date of Service: 07/12/19 Interval History: HD 2 on 07/12 64 F with PMH of Diabetes presented with headache after a head injury while tubing. Found to have left sub-arachnoid hemorrhage with no neurological deficit. Admitted under observation. No acute overnight events vitals-stable Patient seen and examined at bedside. patient is having on and off headache;5/ 10. No visual changes or weakness. Waiting for AM CT scan. Objective Active Medications: Acetaminophen (Tylenol Tab*) 650 mg PO Q6H PRN PRN Reason: PAIN - MILD Atorvastatin Calcium (Lipitor*) 10 mg PO DAILY [facility] Cholecalciferol (Vitamin D Tab*) 1,000 units PO DAILY [facility] Levetiracetam (Keppra Tab*) 1,000 mg PO BID [facility] Last Admin: 07/11/19 22:41 Dose: 1,000 mg Metformin HCl (Glucophage*) 750 mg PO DAILY [facility] Sitagliptin Phosphate (Januvia (Nf)) 50 mg PO DAILY [facility] Vital Signs - 8 hr 07/11/19 07/12/19 23:41 03:37 Temperature 97.7 F 97.6 F Pulse Rate 67 72 Respiratory 16 16 Rate Blood Pressure 132/75 125/70 (mmHg) O2 Sat by Pulse 98 97 Oximetry Oxygen Devices in Use Now: None Exam: General - NAD, sitting up in bed, Eyes - PERRLA, EOM intact HEENT- no abnormality Lymph Nodes - No lymphadenopathy Cardiovascular - RRR no m/r/g, no JVD, no carotid bruits Lungs - Clear to auscltation, no use of acessory muscles, no crackles or wheezes. Skin - No rashes, skin warm and dry, no erythematous areas Abdomen - Normal bowel sounds, abdomen soft and nontender Extremities - No edema, cyanosis or clubbing Musculo Skeletal - 5/5 strength, normal range of motion, no swollen or erythematous joints. Neurological Alert and oriented x 3, CN 2-12 grossly intact. Result Diagrams: 07/12/19 05:53 07/11/19 13:32 Additional Lab and Data: Lab Results 07/11/19 07/11/19 07/11/19 Range/Units 13:32 13:32 13:32 WBC 5.1 (3.5-10.8) 10^3/uL RBC 4.39 (3.70-4.87) 10^6 /uL Hgb 13.2 (12.0-16.0) g/dL Hct 38 (35-47) % MCV 87 (80-97) fL MCH 30 (27-31) pg MCHC 35 (31-36) g/dL RDW 14 (10-15) % Plt Count 95 L (150-450) 10^3/uL MPV 11.6 H (7.4-10.4) fL INR (Anticoag Therapy) 1.16 H (0.82-1.09) Sodium 138 (135-145) mmol/L Potassium 3.8 (3.5-5.0) mmol/L Chloride 103 (101-111) mmol/L Carbon Dioxide 27 (22-32) mmol/L Anion Gap 8 (2-11) mmol/L BUN 12 (6-24) mg/dL Creatinine 0.70 (0.51-0.95) mg/dL Est GFR ( Amer) 101.9 (>60) Est GFR (Non-Af Amer) 84.2 (>60) BUN/Creatinine Ratio 17.1 (8-20) Glucose 105 H (70-100) mg/dL Calcium 9.6 (8.6-10.3) mg/dL Total Bilirubin 0.70 (0.2-1.0) mg/dL AST 27 (13-39) U/L ALT 30 (7-52) U/L Alkaline Phosphatase 91 (34-104) U/L Total Protein 7.7 (6.4-8.9) g/dL Albumin 4.5 (3.2-5.2) g/dL Globulin 3.2 (2-4) g/dL Albumin/Globulin Ratio 1.4 (1-3) Assess/Plan/Problems-Billing Assessment: 64 F with PMH of Diabetes presented with headache after a head injury while tubing. Found to have left sub-arachnoid hemorrhage with no neurological deficit. Pending repeat CT - Patient Problems (1) Subarachnoid hemorrhage Current Visit: Yes Status: Acute Code(s): I60.9 - NONTRAUMATIC SUBARACHNOID HEMORRHAGE, UNSPECIFIED SNOMED Code(s): 056425443 Comment: -traumatic SAH- fell while tubing -hit back of her head; having headache since then; controlled with tylenol -Brain CT- small left frontal SAH -cervical and lumbar imaging- no fracture -started on keppra from 07/11-for 7 days: for seizure prophylaxis -pending repeat CT-if stable discharge (2) Thrombocytopenia Current Visit: Yes Status: Acute Code(s): D69.6 - THROMBOCYTOPENIA, UNSPECIFIED SNOMED Code(s): 758357997 Comment: -Chronic -Normal liver enzymes, B12, folate -No alcohol use -sent MAHOGANY -can f/u as an oupatient (3) Diabetes Current Visit: Yes Status: Acute Code(s): E11.9 - TYPE 2 DIABETES MELLITUS WITHOUT COMPLICATIONS SNOMED Code(s): 83426819 Comment: -On sitagliptin and diabetes (4) DVT prophylaxis Current Visit: Yes Status: Acute Code(s): Z29.9 - ENCOUNTER FOR PROPHYLACTIC MEASURES, UNSPECIFIED SNOMED Code(s): 264494897 Comment: -On SCD (5) Full code status Current Visit: Yes Status: Acute Code(s): Z78.9 - OTHER SPECIFIED HEALTH STATUS SNOMED Code(s): 361042454 Status and Disposition: Observation probable dc today Attending: Sophia Boyce Attestation Documenting Resident: Neal Stone Supervising Physician: Sophia Boyce Attestation: This service has been performed in part by a resident under the direction of a teaching physician.I, Sophia Boyce, performed the service, or was physically present during the critical, or torre portions of the service, furnished by the resident. I participated in the management of the patient.
[2019-07-12] MEDS ORDERED: Cholecalciferol TAB* 1000 UNITS PO SCH (09:00)
[2019-07-12] MEDS ORDERED: Atorvastatin* 10 MG TAB PO SCH (09:00)
[2019-07-12] MEDS ORDERED: CMCS: Sitagliptin (NF) 50 MG TAB PO SCH (09:00)
[2019-07-12] MEDS: levETIRAcetam TAB* 500 MG PO SCH ×2 (09:24→19:31)
[2019-07-12] MEDS: metFORMIN* 500 MG TAB PO SCH ×2 (09:25→09:29)
--- NOTE | 2019-07-12 14:41 | DS ---
CC: Dr. Porsha Graham; Dr. Tracy Lara * DISCHARGE SUMMARY: DATE OF ADMISSION: 07/11/19 DATE OF DISCHARGE: 07/12/19 PRIMARY CARE PHYSICIAN: Dr. Porsha Graham. PRIMARY DIAGNOSES: 1. Subarachnoid hemorrhage from trauma. 2. Thrombocytopenia. SECONDARY DIAGNOSIS: Diabetes. CONSULTS: Dr. Tracy Lara of Neurosurgery. DISCHARGE MEDICATIONS: 1. Levetiracetam 1 g twice a day for 6 more days. 2. Metformin 1500 mg a day. 3. Sitagliptin 50 mg daily. 4. Atorvastatin 10 mg daily. 5. Vitamin D 1000 units daily. 6. Acetaminophen 650 mg every 6 hours as needed for pain or headache. HISTORY OF PRESENT ILLNESS: Ms. Patel is a 64-year-old woman with diabetes, who presented to urgent care 1 day after a fall yesterday. According to the patient, she was tubing at [place] when she fell after slipping on ice and hit the back of her head. She states she lost consciousness for about 5 seconds. She was with her kids and grand kids when this happened. There was no witnessed seizure, incontinence, or altered mental status. Her symptoms were not preceded by lightheadedness, wooziness, or tunnel vision. The patient has had a headache since then on the right frontal area, 6/10, without radiation or aggravating and alleviating factors. Her headache is not associated with nausea or vomiting. She did not tell anyone or seek medical care yesterday as she did not want to bother her kids and her . She denies trauma to other parts of her body, visual changes, instability of gait. Today, her headache was increasing, so went to the urgent care. A brain CT was done there, which showed left-sided small frontal subarachnoid hemorrhage, so she was sent to [facility] for further evaluation. HOSPITAL COURSE: In the emergency room, the patient had stable vital signs and her blood work was unremarkable except for a platelet count of 95. CT cervical spine was performed, was negative for fractures, but it did show spondylosis and moderate foraminal stenosis at C6. Dr. Lara saw and evaluated the patient, who recommended repeat CT scan the next morning with initiation of Keppra for seizure prophylaxis. The patient reports her headache was well controlled throughout admission with extra strength Tylenol. Her home aspirin was held and she was not given NSAIDs. She underwent frequent neuro checks and had no focal neuro deficits. She is continuing her home diabetes regimen. For thrombocytopenia, folate and B12 were checked and were within normal limits. By the next morning, a repeat brain CT showed minimal left frontal subarachnoid hemorrhage persistent, but improved when compared to the day before. Dr. Lara recommended to discharge the patient to complete 1 week of Keppra and to follow up in clinic with him. She was advised on her activity limitations and to hold the aspirin until she is cleared by Neurosurgery. PERTINENT DIAGNOSTIC STUDIES: CBC notable for platelets in the 90s, which appears to be the patient's baseline even in labs seen 6 years ago. INR 1.16. BMP and LFTs unremarkable. Vitamin B12 and folate normal. CT scan in urgent care with small amount of left frontal subarachnoid hemorrhage. Repeat next morning with minimal left frontal subarachnoid hemorrhage persistent, but improved when compared to the day prior. Cervical spine x-ray with dynamic spondylolisthesis of C4 on C5, multilevel spondylosis. Lumbar spine x-ray with vertebral body heights preserved, multilevel spondylosis and spondylolisthesis. DISCHARGE PLAN: The patient will be discharged with followup with her primary care physician as well as Dr. Lara of Neurosurgery. She should have a repeat head CT prior to that visit. She was discharged on 6 more days of Keppra to take twice a day for seizure prophylaxis. She was advised to continue Tylenol for headache and to avoid NSAIDs and to also hold her aspirin until seen by Dr. Lara. She was educated to avoid lifting, bending, or driving until she is seen in the clinic. For thrombocytopenia, the patient should have ongoing workup and monitoring with her primary care physician. She thinks she has been previously screened for hep C and HIV and she will follow this up with her PCP. Her vitamin levels here were normal. No other changes were made to her home medication except for the addition of Keppra and Tylenol. The patient and her daughter were given written precautions, which include but are not limited to worsening headache especially associated with nausea or vomiting or any other signs of bleeding or focal neuro deficits. DIET: Healthy diet, low in carbohydrates and sugars. ACTIVITY: As tolerated with limitations on bending, lifting, and driving. DISPOSITION: Home. CONDITION: Good. TIME SPENT: Approximately 60 minutes was spent on the discharge of this patient , more than half of which was spent with care coordination at bedside for interview and exam. [id number]/CPS #: [id number] [place]
[2019-07-12 15:46] VITALS: BP 128/65
--- NOTE | 2019-07-12 18:23 | PN ---
Progress Note - Progress Note Date of Service: 07/12/19 SOAP: Subjective: []No events ON. Ambulates. Tolerates Po well. Voids. No MARTINI. No neck pain. Objective: [] VSS MJ collar. AAOx3 HOLA, CN II-XII grossly intact Motor 5/5 all extremities Sensory grossly intact to light touch Assessment: []64 yof HD#1 reported fall, CHI Plan: []Monitor VS, Neurochecks Repeat CT of head, No changes. F/E XR of C spine revealed C4-5 spondylolisthesis. MRI of the C spine did not reveal any PLC injury. No STIR signal changes. L spine XR without evidence of fracture. Report from previous MRI of C spine from 2018 concerning for C4-5 microinstability. Discussed in extend with patient regarding imaging findings. Patient has chronic neck pain that had increased after the fall. Patient may be a candidate for surgical intervention and we discussed risks and benefits of the procedure. Patient not feeling ready to consider surgical intervention at this time. Follow up in my office in two weeks with repeat F/E XR of C spine. Maintain MJ collar. Fall precautions. Patient understands the importance of avoiding any activity that may cause injury to C spine. She understand the possible outcome of neck instability including spinal cord injury, myelopathy and paralysis. SZ prophylaxis for 7 days. Appreciate IM care. Mazin Lara MD
[2019-07-13 13:39] LABS: Copper Level 1.01 mcg/mL (0.75-1.45)
== END 2019-07-12 19:05 | disposition home or self-care (01) ==
LOC: ED 12:56 → MEDTELE 15:21
PROVIDERS: ADMIT Internal Medicine; ATTEND Internal Medicine
DX: S06.6X1A Traumatic subarachnoid hemorrhage with loss of consciousness of 30 minutes or less, initial encounter (principal); W00.9XXA Unspecified fall due to ice and snow, initial encounter; Y93.23 Activity, snow (alpine) (downhill) skiing, snowboarding, sledding, tobogganing and snow tubing; Y92.9 Unspecified place or not applicable; D69.6 Thrombocytopenia, unspecified; E11.9 Type 2 diabetes mellitus without complications; Z79.84 Long term (current) use of oral hypoglycemic drugs; Z79.899 Other long term (current) drug therapy; Z79.82 Long term (current) use of aspirin; Z88.2 Allergy status to sulfonamides; Z88.6 Allergy status to analgesic agent; Z87.891 Personal history of nicotine dependence
CPT/HCPCS: 36415; 70450; 72040; 72100; 72141; 80053; 82525; 82607; 82746; 85027; 85610; 86038; 99284; A9270-GY; G0378

== ENCOUNTER 2024-03-19 18:54 | Observation (INO) ==
[2024-03-19 19:25] LABS: ABS Eosinophils 0.1 10^3/uL (0.0-0.5); ABS Lymphocytes 2.1 10^3/uL (1.0-4.8); ABS Monocytes 0.6 10^3/uL (0.0-0.9); ABS Neutrophils 3.4 10^3/uL (1.5-7.6); ABS Nucleated RBC 0.01 10^3/ul; Eosinophil % 1.6 %; Hematocrit 38.9 % (35-45); Hemoglobin 13.2 g/dL (11.5-14.3); Lymphocyte % 34.2 %; Mean Corpuscular Hemoglobin 29.6 pg (27-33); Mean Platelet Volume 10.9 fL (7.5-11.2); Nucleated Red Blood Cells % 0.1 %/100WBC (0.0-0.8); Platelet Count 117 10^3/uL (150-450); Red Blood Count 4.47 10^6/uL (3.63-4.92); White Blood Count 6.2 10^3/uL (3.8-11.8)
[2024-03-19] MEDS: Iodixanol 320 (CONTRAST) 100 ML SDV IV ONE (19:27)
[2024-03-19 19:33] LABS: Activated Partial Thrombo Time 31.5 seconds (26.0-38.0); INR 1.14 (0.85-1.14)
[2024-03-19 19:59] LABS: Albumin 4.5 g/dL (3.2-5.2); Albumin/Globulin Ratio 1.6 (1-3); Calcium 9.8 mg/dL (8.6-10.3); Creatinine, Serum 0.71 mg/dL (0.51-0.95); Direct Bilirubin 0.1 mg/dL (0.03-0.18); Globulin 2.8 g/dL (2-4); HDL Cholesterol 51.9 mg/dL; Indirect Bilirubin 0.5 mg/dL (0.3-1.0); Potassium 4.2 mmol/L (3.5-5.0); Total Bilirubin 0.6 mg/dL (0.2-1.0); Total Protein 7.3 g/dL (6.4-8.9); eGFR CKD-EPI 92.6 (>60)
[2024-03-19] MEDS: Aspirin EC 325 mg TAB.EC PO ONE (20:53)
[2024-03-19 21:10] LABS: High Sensitivity Troponin 1 Hr < 3 pg/mL (<15)
[2024-03-19] MEDS ORDERED: Dextrose 50% Syringe 50 ml 25 GM/50 ML SYRINGE IV PUSH PRN (21:54)
[2024-03-19 22:28] LABS: Urine Appearance Clear; Urine Bilirubin Negative (Negative); Urine Blood Negative (Negative); Urine Color Colorless; Urine Glucose 2+ (>=150 mg/dL) (Negative); Urine Ketones Negative (Negative); Urine Nitrite Negative (Negative); Urine Protein Negative (Negative); Urine Specific Gravity 1.039 (1.002-1.030); Urine Urobilinogen Negative (Negative)
[2024-03-20 00:57] VITALS: BP 120/72
[2024-03-20] MEDS ORDERED: Aspirin EC 81 mg TAB.EC (enteric coated) PO SCH (09:00)
[2024-03-22 12:21] LABS: Lacosamide 7.9 mcg/mL (1.0 - 10.0)
== END 2024-03-20 01:18 | disposition home or self-care (01) ==
LOC: EDHOLD 18:54 → ED 18:54 → EDHOLD 03-20 01:13 → ED 03-20 01:13
PROVIDERS: ADMIT Internal Medicine; ATTEND Internal Medicine

== ENCOUNTER 2024-05-15 10:31 | Observation (INO) ==
[2024-05-15] MEDS: Lactated Ringers 1000 ml BAG 1,000 ML IV ONE (11:31)
[2024-05-15] MEDS: Ondansetron 4 mg VIAL 2 MG/ML 2 ml VIAL IV ONE ×2 (11:31→15:13)
[2024-05-15 11:51] LABS: ABS Lymphocytes 0.9 10^3/uL (1.0-4.8); ABS Monocytes 0.5 10^3/uL (0.0-0.9); ABS Neutrophils 6.6 10^3/uL (1.5-7.6); Eosinophil % 0.2 %; Hematocrit 39.3 % (35-45); Hemoglobin 13.2 g/dL (11.5-14.3); Lymphocyte % 10.8 %; Mean Corpuscular Hemoglobin 29.1 pg (27-33); Mean Corpuscular Hgb Conc 33.5 g/dL (31-36); Mean Corpuscular Volume 86.9 fL (80-97); Mean Platelet Volume 10.5 fL (7.5-11.2); Platelet Count 110 10^3/uL (150-450); Red Blood Count 4.53 10^6/uL (3.63-4.92); Red Cell Distribution Width 13.7 % (12-17)
[2024-05-15 12:24] LABS: ALT 24 U/L (7-52); AST 21 U/L (13-39); Albumin 4.7 g/dL (3.5-5.7); Albumin/Globulin Ratio 1.6 (1-3); Alkaline Phosphatase 88 U/L (35-149); Anion Gap 9 mmol/L (2-16); Blood Urea Nitrogen 14 mg/dL (6-24); C Reactive Protein < 1.00 mg/L (<8.01); CO2 Carbon Dioxide 28 mmol/L (22-32); Calcium 9.6 mg/dL (8.6-10.3); Chloride 97 mmol/L (101-111); Globulin 2.9 g/dL (2-4); Glucose 205 mg/dL (70-100); Magnesium 1.9 mg/dL (1.9-2.7); Potassium 4.2 mmol/L (3.5-5.0); Sodium 134 mmol/L (135-145); Total Bilirubin 0.8 mg/dL (0.2-1.0); Total Protein 7.6 g/dL (6.4-8.9); eGFR CKD-EPI 97.1 (>60)
[2024-05-15] MEDS: Iodixanol 320 (CONTRAST) 100 ML SDV IV ONE (12:50)
[2024-05-15] MEDS: ACETAMINOPHEN IV ONE (14:11)
[2024-05-15] MEDS: Acetaminophen IV 1 GM/100ML 1,000 MG/100 ML BAG IV ONE (14:20)
[2024-05-15] MEDS: Lidocaine PATCH 5% PATCH TRANSDERM ONE (14:20)
[2024-05-15] MEDS: fentaNYL 100 mcg/2 ml 50 MCG/ML VIAL IV SLOW PU ONE (15:07)
[2024-05-15] MEDS: Metoclopramide 5 MG/ML VIAL (10 mg) IV SLOW PU ONE (15:56)
[2024-05-15 16:04] LABS: Urine Appearance Clear; Urine Bilirubin Negative (Negative); Urine Blood Negative (Negative); Urine Color Light-Yellow; Urine Glucose 3+ (>=300 mg/dL) (Negative); Urine Ketones Negative (Negative); Urine Nitrite Negative (Negative); Urine Protein Negative (Negative); Urine Specific Gravity 1.038 (1.002-1.030); Urine Urobilinogen Negative (Negative)
[2024-05-15] MEDS ORDERED: Ondansetron 4 mg VIAL 2 MG/ML 2 ml VIAL IV PRN (17:30)
[2024-05-15] MEDS ORDERED: HYDROmorphone 1 MG/1 ML SYRINGE IV SLOW PU PRN (17:45)
[2024-05-15] MEDS ORDERED: HYDROmorphone 0.5 MG/0.5 ML SYRINGE IV SLOW PU PRN (17:46)
[2024-05-15] MEDS ORDERED: Dextrose 50% Syringe 50 ml 25 GM/50 ML SYRINGE IV PUSH PRN (17:53)
[2024-05-15] MEDS: Lactated Ringers 1000 ml BAG 1,000 ML IV SCH (18:45)
[2024-05-15] MEDS: Enoxaparin 40 MG/0.4 ML SYR SUBCUT SCH (22:52)
[2024-05-16 06:55] LABS: ABS Lymphocytes 1.7 10^3/uL (1.0-4.8); ABS Monocytes 0.7 10^3/uL (0.0-0.9); ABS Neutrophils 3.9 10^3/uL (1.5-7.6); Eosinophil % 0.5 %; Hematocrit 35.8 % (35-45); Hemoglobin 12.2 g/dL (11.5-14.3); Lymphocyte % 26.6 %; Mean Corpuscular Hemoglobin 29.5 pg (27-33); Mean Corpuscular Volume 86.8 fL (80-97); Mean Platelet Volume 11.2 fL (7.5-11.2); Platelet Count 110 10^3/uL (150-450); Red Blood Count 4.12 10^6/uL (3.63-4.92); Red Cell Distribution Width 14.1 % (12-17); White Blood Count 6.3 10^3/uL (3.8-11.8)
[2024-05-16 07:01] LABS: Albumin/Globulin Ratio 1.6 (1-3); Creatinine, Serum 0.59 mg/dL (0.51-0.95); Globulin 2.5 g/dL (2-4); Potassium 3.5 mmol/L (3.5-5.0); Total Bilirubin 0.7 mg/dL (0.2-1.0); Total Protein 6.5 g/dL (6.4-8.9); eGFR CKD-EPI 97.5 (>60)
[2024-05-16] MEDS: Lidocaine PATCH 5% PATCH TRANSDERM SCH (08:37)
[2024-05-16] MEDS: Aspirin EC 81 mg TAB.EC (enteric coated) PO SCH (08:40)
[2024-05-16 14:57] VITALS: BP 131/68
== END 2024-05-16 16:28 | disposition home or self-care (01) ==
LOC: EDHOLD 10:31 → ED 10:31 → SSU 17:30
PROVIDERS: ADMIT Internal Medicine; ATTEND Internal Medicine